=== PATIENT | female | born 1960 | race Caucasian/White ===

== ENCOUNTER 2017-11-12 13:10 | Day surgery (SDC) | payer OTHER ==
[~2017-11-12] VITALS: Ht 160 cm; Wt 136.4 kg
[~2017-11-12 13:10] MED LIST: ASPI-1009 PO; ATOR20TA66 PO; COR3.125T PO; ESZO3TAB PO; EXEN10PE SQ; EXEN2VIA SUBCUT; INSU100V36 SQ; INVOKANA; LANTUS SQ; LISI40TA4 PO; METF500T PO; MULT-1085 PO; NIA500ERT PO; OMEG1CAP54 PO; OMEP20CA4 PO
[2017-11-12] MEDS ORDERED: fentaNYL/PF 50MCG/1 ML 2ML syringe ONE (13:13)
[2017-11-12] MEDS ORDERED: LIDOcaine Viscous 15ml cup ONE (13:13)
[2017-11-12] MEDS ORDERED: MIDAZolam 5mg/5ml vial ONE (13:13)
[2017-11-12] MEDS ORDERED: ESZO3TAB38 PO (13:35)
[2017-11-12] MEDS ORDERED: IBUP-1986 PO (13:36)
[2017-11-12] MEDS ORDERED: INSU100V9 SQ (13:37)
[2017-11-12] MEDS ORDERED: ESCI10TA PO (13:37)
[2017-11-12] MEDS ORDERED: METF500T7 PO (13:39)
[2017-11-12] MEDS ORDERED: METF-436 PO (13:40)
[2017-11-12] MEDS ORDERED: TIZA4CAP PO (13:41)
[2017-11-12] MEDS ORDERED: NIA500ERT PO (13:41)
[2017-11-12 13:43] VITALS: BP 121/64
[2017-11-12 14:30] VITALS: BP 108/59
[2017-11-12 14:40] VITALS: BP 103/59
[2017-11-12 14:50] VITALS: BP 104/53
[2017-11-12 15:00] VITALS: BP 120/57
== END 2017-11-12 15:10 | disposition home or self-care (01) ==
LOC: GI LAB 13:10
PROVIDERS: ATTEND Internal Medicine Gastroenterology
DX: I85.00 Esophageal varices without bleeding (principal); K20.9 Esophagitis, unspecified; K29.50 Unspecified chronic gastritis without bleeding; I10 Essential (primary) hypertension; J44.9 Chronic obstructive pulmonary disease, unspecified; E66.01 Morbid (severe) obesity due to excess calories; Z79.82 Long term (current) use of aspirin; Z79.1 Long term (current) use of non-steroidal anti-inflammatories (NSAID); Z87.891 Personal history of nicotine dependence; Z90.49 Acquired absence of other specified parts of digestive tract; Z72.89 Other problems related to lifestyle; Z98.51 Tubal ligation status; Z79.4 Long term (current) use of insulin; Z79.84 Long term (current) use of oral hypoglycemic drugs; Z68.43 Body mass index [BMI] 50.0-59.9, adult; Z98.890 Other specified postprocedural states; Z79.899 Other long term (current) drug therapy
CPT/HCPCS: 43239; 82948; J2250; J3010; J7030; A4620; G0500

== ENCOUNTER 2019-04-22 18:46 | Inpatient (IN) | payer OTHER ==
[~2019-04-22] VITALS: Ht 160 cm; Wt 136.3 kg
[~2019-04-22 18:46] MED LIST changes: +ESCI10TA PO; -ESZO3TAB PO; +ESZO3TAB66 PO; +IBUP-1986 PO; -INSU100V36 SQ; +INSU100V9 SQ; -LANTUS SQ; +METF-436 PO; -METF500T PO; +METF500T20 PO; -OMEP20CA4 PO; +TIZA4CAP PO
[2019-04-22] MEDS ORDERED: albuterol 2.5 MG/3 ML nebule NEB ONE (19:10)
[2019-04-22] MEDS ORDERED: normal saline 1000ML IV soln IVB ONE (19:10)
[2019-04-22 19:44] LABS: WHITE BLOOD COUNT 6.2 X10'3 (4.5-11.0)
[2019-04-22 19:45] LABS: BASOPHILS % (AUTO) 0.3 % (0-1); EOSINOPHILS % (AUTO) 0 % (0-6); HEMATOCRIT 41.2 % (35.0-45.0); LYMPHOCYTES # (AUTO) 0.2 X10'3 (1.1-4.8); LYMPHOCYTES % (AUTO) 2.6 % (21-51); MEAN CORPUSCULAR HEMOGLOBIN 28.5 PG (27.0-31.0); MEAN CORPUSCULAR HGB CONC 33.9 g/dL (33.0-36.5); MEAN PLATELET VOLUME 9.1 FL (7.4-10.4); MONOCYTES # (AUTO) 0.3 X10'3 (0-0.9); NEUTROPHILS # (AUTO) 5.8 X10'3 (1.8-7.7); NEUTROPHILS % (AUTO) 93.1 % (42-75); RED BLOOD COUNT 4.91 X10'6 (4.20-5.60); RED CELL DISTRIBUTION WIDTH 14.5 % (11.5-14.5)
[2019-04-22] MEDS ORDERED: acetaminophen 325mg tablet PO ONE (19:50)
[2019-04-22 19:55] LABS: PARTIAL THROMBOPLASTIN TIME 27 SECONDS (22-32)
[2019-04-22 19:57] LABS: ALANINE AMINOTRANSFERASE 60 U/L (12-78); ALBUMIN 3.6 G/DL (3.4-5.0); ALBUMIN/GLOBULIN RATIO 0.8 (1.1-1.5); ALKALINE PHOSPHATASE 47 IU/L (46-116); ANION GAP 13 (8-16); ASPARTATE AMINO TRANSFERASE 72 U/L (10-37); BILIRUBIN,TOTAL 0.6 MG/DL (0.1-1.0); BLOOD UREA NITROGEN 17 MG/DL (7-18); BUN/CREATININE RATIO 9.8 (6.6-38.0); CHLORIDE 98 MMOL/L (99-107); CREATININE 1.73 MG/DL (0.40-0.90); GLUCOSE 235 MG/DL (70-104); POTASSIUM 3.7 MMOL/L (3.5-5.1); SODIUM 134 MMOL/L (135-145); TOTAL CARBON DIOXIDE 23.4 MMOL/L (24-32); TOTAL PROTEIN 7.9 G/DL (6.4-8.2); eGFR 30 ML/MIN
[2019-04-22 20:23] LABS: BANDS% (MANUAL) 9 % (0-10); LYMPHOCYTES % (MANUAL) 1 % (21-51); MONOCYTES % (MANUAL) 3 % (2-12); NEUTROPHILS % (MANUAL) 88 % (42-75); PLATELET COUNT 81 X10'3 (140-440); PLATELET ESTIMATE DECREASED; TOTAL CELLS COUNTED 100
[2019-04-22] MEDS ORDERED: azithromycin 250mg tablet PO ONE (20:30)
[2019-04-22] MEDS ORDERED: CefTRIAXone 2gm/D5W 50ml 50 ML IV ONE (20:30)
[2019-04-22 20:46] LABS: COLOR,URINE YELLOW (Yellow); GLUCOSE, URINE >=1000 mg/dl (Neg); KETONES,URINE NEGATIVE (Neg); LEUKOCYTE ESTERASE ,URINE SMALL (Neg); NITRITES, URINE NEGATIVE (Neg); OCCULT BLOOD,URINE MODERATE (Neg); PH,URINE 5.5 (4.8-8.0); PROTEIN,URINE NEGATIVE (Neg); UROBILINOGEN,URINE 0.2 E.U/dL (0.2-1.0)
[2019-04-22 20:47] LABS: CLARITY,URINE Slightly Cloudy (Clear); UA COLLECTION TYPE CLN CATCH MIDSTREAM
[2019-04-22 20:55] LABS: BACTERIA,URINE FEW /HPF (Neg); MUCUS STRANDS NONE SEEN /LPF (Neg); RBC,URINE 0-2 /HPF (0-2); SQUAMOUS EPITHELIAL CELL,UR MANY /LPF (FEW); TRANSITIONAL EPI CELLS,URINE MODERATE /HPF
[2019-04-22] MEDS ORDERED: ALBU8.5H8 IH (20:55)
[2019-04-22] MEDS ORDERED: DOXY100C43 PO (20:55)
[2019-04-22] MEDS ORDERED: vancomycin/NS 1 GM ADD-VANTAGE 250 ML IV ONE (21:05)
[2019-04-22] MEDS ORDERED: CANA300T PO (21:16)
[2019-04-22] MEDS ORDERED: METF500T PO (21:16)
[2019-04-22] MEDS ORDERED: iohexol 300mg/ml 100ml inj. ONE (21:41)
[2019-04-22] MEDS: MESSAGE TO NURSING PO NR (21:45)
[2019-04-22] MEDS ORDERED: magnesium Cl slow-release 64mg tablet PO PRN (22:30)
[2019-04-22] MEDS ORDERED: magnesium 2GM in 50ml NS 50 ML IV PRN (22:30)
[2019-04-22] MEDS ORDERED: mag hydrox/Alum hydrox/simeth 30ml oral suspension PO PRN (22:30)
[2019-04-22] MEDS ORDERED: ondansetron/PF 4mg/2ml inj IV PRN (22:30)
[2019-04-22] MEDS ORDERED: magnesium hydroxide 30ml (MOM) UD suspension PO PRN (22:30)
[2019-04-22] MEDS ORDERED: potassium CL 10mEq/100ml bag 100 ML IV PRN ×2 (22:30)
[2019-04-22] MEDS ORDERED: magnesium 4gm in 100ml NS 100 ML IV PRN (22:30)
[2019-04-22] MEDS ORDERED: potassium Cl 20 mEq SR tablet PO PRN (22:30)
[2019-04-22] MEDS ORDERED: MESSAGE TO PHARMACY PO ONE (22:35)
[2019-04-22] MEDS ORDERED: dextrose ORAL solution 15 GM/59 ML bottle PO PRN ×2 (22:35)
[2019-04-22] MEDS ORDERED: glucagon, human recombinant 1mg kit SUBCUT PRN (22:35)
[2019-04-22] MEDS ORDERED: dextrose 50%-water 50ml dispensing syringe IV PRN ×2 (22:35)
[2019-04-22 23:25] VITALS: BP 108/72
--- NOTE | 2019-04-22 23:25 | NUR ---
pt brought to unit via wheelchair accompanied by family. transferred self to bed, 2x rails up, non skid socks on, BLL, call light in reach. in no apparent distress, will continue to monitor
[2019-04-22] MEDS: normal saline 1000ml 1,000 ML IV SCH (23:47)
[2019-04-23] MEDS: insulin glargine (Lantus) pen - multi-dose SQ SCH ×2 (00:28→21:48)
[2019-04-23] MEDS: clindamycin 600mg/D5W 50ml 50 ML IV SCH ×2 (02:14→07:14)
[2019-04-23 05:13] LABS: BASOPHILS % (AUTO) 0 % (0-1); EOSINOPHILS % (AUTO) 0.1 % (0-6); HEMATOCRIT 36.9 % (35.0-45.0); HEMOGLOBIN 12.3 g/dl (12.0-16.0); LYMPHOCYTES # (AUTO) 0.3 X10'3 (1.1-4.8); LYMPHOCYTES % (AUTO) 4.6 % (21-51); MEAN CORPUSCULAR HEMOGLOBIN 28.2 PG (27.0-31.0); MEAN CORPUSCULAR HGB CONC 33.4 g/dL (33.0-36.5); MEAN CORPUSCULAR VOLUME 84.5 FL (78-98); MEAN PLATELET VOLUME 9.3 FL (7.4-10.4); MONOCYTES # (AUTO) 0.3 X10'3 (0-0.9); MONOCYTES % (AUTO) 5.3 % (2-12); NEUTROPHILS # (AUTO) 5.9 X10'3 (1.8-7.7); PLATELET COUNT 63 X10'3 (140-440); RED BLOOD COUNT 4.36 X10'6 (4.20-5.60); RED CELL DISTRIBUTION WIDTH 14.5 % (11.5-14.5); WHITE BLOOD COUNT 6.5 X10'3 (4.5-11.0)
[2019-04-23 05:26] LABS: ALANINE AMINOTRANSFERASE 58 U/L (12-78); ALBUMIN/GLOBULIN RATIO 0.8 (1.1-1.5); ALKALINE PHOSPHATASE 43 IU/L (46-116); ANION GAP 9 (8-16); ASPARTATE AMINO TRANSFERASE 54 U/L (10-37); BILIRUBIN,TOTAL 0.4 MG/DL (0.1-1.0); BLOOD UREA NITROGEN 21 MG/DL (7-18); BUN/CREATININE RATIO 11.4 (6.6-38.0); CALCIUM 8.2 MG/DL (8.5-10.1); CHLORIDE 102 MMOL/L (99-107); CREATININE 1.85 MG/DL (0.40-0.90); GLUCOSE 200 MG/DL (70-104); MAGNESIUM 1.5 MG/DL (1.5-2.4); POTASSIUM 3.7 MMOL/L (3.5-5.1); SODIUM 136 MMOL/L (135-145); TOTAL CARBON DIOXIDE 25.3 MMOL/L (24-32); TOTAL PROTEIN 6.7 G/DL (6.4-8.2); eGFR 28 ML/MIN
[2019-04-23 05:35] LABS: PLATELET ESTIMATE DECREASED; TOTAL CELLS COUNTED 100
[2019-04-23 05:41] LABS: ROULEAUX 1+
--- NOTE | 2019-04-23 06:23 | NUR ---
report given to GLENYS Sanchez
--- NOTE | 2019-04-23 06:26 | NUR ---
Patient in room [facility]. I have received report from Miko VERONICA and had the opportunity to ask questions and assume patient care.
[2019-04-23] MEDS: ESCITALOPRAM OXALATE 5 MG TABLET PO SCH (07:18)
[2019-04-23] MEDS: aspirin 81mg tablet.DR PO SCH (07:18)
[2019-04-23] MEDS: OMEGA-3/DHA/EPA/FISH OIL 1 EACH CAPSULE.DR PO SCH ×3 (07:18→20:38)
[2019-04-23] MEDS: acetaminophen 325mg tablet PO PRN ×3 (07:18→17:53)
[2019-04-23] MEDS: carvedilol 6.25mg tablet PO SCH ×2 (07:18→20:00)
[2019-04-23] MEDS: atorvastatin 20mg tablet PO SCH (07:19)
[2019-04-23] MEDS: lisinopril 20mg tablet PO SCH (07:19)
[2019-04-23] MEDS: heparin, porcine 5000 units/ml vial SQ SCH ×2 (07:33→20:00)
[2019-04-23 08:00] VITALS: BP_SYST 107; BP_SYST 114; BP_DIAS 66; BP_DIAS 68
[2019-04-23] MEDS: K and/or MAG REPLACEMENT MC SCH ×2 (08:00→19:08)
[2019-04-23] MEDS: CefTRIAXone/D5W-Rocephin 1gm 50 ML IV SCH (08:44)
[2019-04-23] MEDS ORDERED: potassium CL 10mEq/100ml bag 100 ML IV PRN (09:25)
[2019-04-23] MEDS ORDERED: potassium Cl 20 mEq SR tablet PO PRN ×2 (09:25)
[2019-04-23] MEDS ORDERED: magnesium Cl slow-release 64mg tablet PO PRN (09:25)
[2019-04-23] MEDS ORDERED: albuterol 2.5 MG/3 ML nebule NEB PRN (09:35)
[2019-04-23] MEDS: MESSAGE TO NURSING PO NR (10:00)
[2019-04-23] MEDS: normal saline 1000ml 1,000 ML IV SCH ×2 (10:11→18:27)
[2019-04-23 13:21] VITALS: BP 107/68
[2019-04-23] MEDS: HYDROcodone/acetaminophen 5mg/325mg tablet PO PRN (14:24)
[2019-04-23] MEDS ORDERED: ibuprofen tablet 400 MG TABLET PO PRN (15:40)
[2019-04-23] MEDS: ibuprofen 200mg tablet PO PRN (16:09)
[2019-04-23 18:00] VITALS: BP 98/39
[2019-04-23] MEDS: insulin Lispro (HumaLOG) vial - multi-dose SQ SCH (18:35)
--- NOTE | 2019-04-23 18:41 | NUR ---
Patient temp between 102.9 to 103.9. MD notified as needed. New order for Ibuprofen. after pt was medicated the second time temp was down to 99.5 at 1745. Problems reprioritized. Patient report given, questions answered & plan of care reviewed with Miko VERONICA.
[2019-04-23] MEDS: lactobacillus rhamnosus 10,000 MMU CELLS/CAPSULE PO SCH (20:38)
[2019-04-24] VITALS: BP 85/41
[2019-04-24 04:23] VITALS: BP 112/62
[2019-04-24] MEDS: normal saline 1000ml 1,000 ML IV SCH ×2 (04:27→17:48)
[2019-04-24 06:14] LABS: BASOPHILS % (AUTO) 0.1 % (0-1); EOSINOPHILS % (AUTO) 1.2 % (0-6); HEMATOCRIT 34.4 % (35.0-45.0); HEMOGLOBIN 11.5 g/dl (12.0-16.0); LYMPHOCYTES # (AUTO) 0.3 X10'3 (1.1-4.8); LYMPHOCYTES % (AUTO) 6.9 % (21-51); MEAN CORPUSCULAR HEMOGLOBIN 28.3 PG (27.0-31.0); MEAN CORPUSCULAR HGB CONC 33.6 g/dL (33.0-36.5); MEAN CORPUSCULAR VOLUME 84.3 FL (78-98); MONOCYTES # (AUTO) 0.2 X10'3 (0-0.9); NEUTROPHILS # (AUTO) 3.6 X10'3 (1.8-7.7); NEUTROPHILS % (AUTO) 85.8 % (42-75); PLATELET COUNT 60 X10'3 (140-440); RED BLOOD COUNT 4.08 X10'6 (4.20-5.60); RED CELL DISTRIBUTION WIDTH 14.8 % (11.5-14.5); WHITE BLOOD COUNT 4.2 X10'3 (4.5-11.0)
[2019-04-24 06:25] LABS: ALANINE AMINOTRANSFERASE 48 U/L (12-78); ALBUMIN 2.5 G/DL (3.4-5.0); ALBUMIN/GLOBULIN RATIO 0.6 (1.1-1.5); ALKALINE PHOSPHATASE 41 IU/L (46-116); ANION GAP 12 (8-16); ASPARTATE AMINO TRANSFERASE 40 U/L (10-37); BILIRUBIN,TOTAL 0.4 MG/DL (0.1-1.0); BLOOD UREA NITROGEN 30 MG/DL (7-18); BUN/CREATININE RATIO 16.1 (6.6-38.0); CALCIUM 7.7 MG/DL (8.5-10.1); CHLORIDE 103 MMOL/L (99-107); CREATININE 1.86 MG/DL (0.40-0.90); GLUCOSE 126 MG/DL (70-104); MAGNESIUM 1.7 MG/DL (1.5-2.4); POTASSIUM 3.4 MMOL/L (3.5-5.1); SODIUM 136 MMOL/L (135-145); TOTAL PROTEIN 6.4 G/DL (6.4-8.2); eGFR 28 ML/MIN
--- NOTE | 2019-04-24 06:46 | NUR ---
Patient in room [facility]. I have received report from Miko VERONICA and had the opportunity to ask questions and assume patient care.
[2019-04-24] MEDS: CefTRIAXone/D5W-Rocephin 1gm 50 ML IV SCH (07:12)
[2019-04-24] MEDS: ESCITALOPRAM OXALATE 5 MG TABLET PO SCH (07:20)
[2019-04-24] MEDS: potassium Cl 20 mEq SR tablet PO PRN ×3 (07:21→17:45)
[2019-04-24] MEDS: OMEGA-3/DHA/EPA/FISH OIL 1 EACH CAPSULE.DR PO SCH ×3 (07:21→20:29)
[2019-04-24] MEDS: atorvastatin 20mg tablet PO SCH (07:21)
[2019-04-24] MEDS: lactobacillus rhamnosus 10,000 MMU CELLS/CAPSULE PO SCH ×2 (07:21→20:29)
[2019-04-24] MEDS: aspirin 81mg tablet.DR PO SCH (07:22)
[2019-04-24] MEDS: carvedilol 6.25mg tablet PO SCH ×2 (07:25→20:29)
[2019-04-24] MEDS: lisinopril 20mg tablet PO SCH (07:25)
[2019-04-24] MEDS: K and/or MAG REPLACEMENT MC SCH ×2 (07:27→19:44)
[2019-04-24] MEDS: heparin, porcine 5000 units/ml vial SQ SCH ×2 (07:28→20:00)
[2019-04-24] MEDS: insulin Lispro (HumaLOG) vial - multi-dose SQ SCH ×3 (08:34→18:43)
[2019-04-24 08:46] VITALS: BP 108/54
[2019-04-24] MEDS: MESSAGE TO NURSING PO NR (10:00)
[2019-04-24 12:00] VITALS: BP 135/75
[2019-04-24] MEDS: acetaminophen 325mg tablet PO PRN (13:47)
[2019-04-24] MEDS ORDERED: LORazepam 0.5 MG tablet PO PRN (15:10)
--- NOTE | 2019-04-24 15:55 | NUR ---
DM Consult: A1C 7.0. Pt seen by PATIENCE for written/verbal DM ed w/ RD contact information provided. Pt declined verbal ed; sees RD's at [facility] for DM eds. Addendum: 04/24/19 at [address] Amended: Links added.
[2019-04-24 18:00] VITALS: BP 142/71
--- NOTE | 2019-04-24 18:31 | NUR ---
Patient in room [facility]. I have received report from BRITNEY VERONICA and had the opportunity to ask questions and assume patient care.
--- NOTE | 2019-04-24 18:50 | NUR ---
Patient Temp 101.2 antipyretic medication given temp down to 99.1. Problems reprioritized. Patient report given, questions answered & plan of care reviewed with Prudence RN.
[2019-04-24] MEDS: insulin glargine (Lantus) pen - multi-dose SQ SCH (21:17)
[2019-04-24] MEDS: ibuprofen 200mg tablet PO PRN (21:20)
[2019-04-24] MEDS: zolpidem 5mg tablet PO PRN (22:28)
[2019-04-25 00:06] VITALS: BP 96/63
[2019-04-25] MEDS: normal saline 1000ml 1,000 ML IV SCH ×3 (00:27→17:01)
[2019-04-25 05:14] LABS: BASOPHILS % (AUTO) 0.1 % (0-1); EOSINOPHILS # (AUTO) 0.1 X10'3 (0-0.9); EOSINOPHILS % (AUTO) 2.6 % (0-6); HEMATOCRIT 32.2 % (35.0-45.0); HEMOGLOBIN 10.6 g/dl (12.0-16.0); LYMPHOCYTES # (AUTO) 0.4 X10'3 (1.1-4.8); LYMPHOCYTES % (AUTO) 11.7 % (21-51); MEAN CORPUSCULAR HEMOGLOBIN 28.2 PG (27.0-31.0); MEAN CORPUSCULAR VOLUME 85.5 FL (78-98); MEAN PLATELET VOLUME 9.3 FL (7.4-10.4); MONOCYTES # (AUTO) 0.3 X10'3 (0-0.9); MONOCYTES % (AUTO) 7.4 % (2-12); NEUTROPHILS # (AUTO) 2.8 X10'3 (1.8-7.7); NEUTROPHILS % (AUTO) 78.2 % (42-75); PLATELET COUNT 70 X10'3 (140-440); RED BLOOD COUNT 3.77 X10'6 (4.20-5.60); RED CELL DISTRIBUTION WIDTH 14.3 % (11.5-14.5); WHITE BLOOD COUNT 3.6 X10'3 (4.5-11.0)
[2019-04-25 05:36] LABS: ALANINE AMINOTRANSFERASE 39 U/L (12-78); ALBUMIN 2.2 G/DL (3.4-5.0); ALBUMIN/GLOBULIN RATIO 0.6 (1.1-1.5); ALKALINE PHOSPHATASE 41 IU/L (46-116); ANION GAP 7 (8-16); ASPARTATE AMINO TRANSFERASE 28 U/L (10-37); BILIRUBIN,TOTAL 0.3 MG/DL (0.1-1.0); BLOOD UREA NITROGEN 20 MG/DL (7-18); BUN/CREATININE RATIO 15.4 (6.6-38.0); CALCIUM 7.7 MG/DL (8.5-10.1); CHLORIDE 110 MMOL/L (99-107); GLUCOSE 88 MG/DL (70-104); MAGNESIUM 1.9 MG/DL (1.5-2.4); POTASSIUM 3.4 MMOL/L (3.5-5.1); SODIUM 139 MMOL/L (135-145); TOTAL PROTEIN 5.7 G/DL (6.4-8.2); eGFR 42 ML/MIN
--- NOTE | 2019-04-25 06:25 | NUR ---
Problems reprioritized. Patient report given, questions answered & plan of care reviewed with JOSE FRANCISCO VERONICA.
--- NOTE | 2019-04-25 06:30 | NUR ---
Patient in room [facility]. I have received report from Aydee VERONICA and had the opportunity to ask questions and assume patient care.
[2019-04-25 07:06] VITALS: BP 115/77
[2019-04-25] MEDS: heparin, porcine 5000 units/ml vial SQ SCH ×2 (07:23→20:00)
[2019-04-25] MEDS: K and/or MAG REPLACEMENT MC SCH ×2 (08:00→19:50)
[2019-04-25] MEDS: OMEGA-3/DHA/EPA/FISH OIL 1 EACH CAPSULE.DR PO SCH ×3 (09:15→21:54)
[2019-04-25] MEDS: aspirin 81mg tablet.DR PO SCH (09:15)
[2019-04-25] MEDS: lisinopril 20mg tablet PO SCH (09:16)
[2019-04-25] MEDS: atorvastatin 20mg tablet PO SCH (09:17)
[2019-04-25] MEDS: lactobacillus rhamnosus 10,000 MMU CELLS/CAPSULE PO SCH (09:17)
[2019-04-25] MEDS: CefTRIAXone/D5W-Rocephin 1gm 50 ML IV SCH (09:17)
[2019-04-25] MEDS: carvedilol 6.25mg tablet PO SCH ×2 (09:17→19:49)
[2019-04-25] MEDS: ESCITALOPRAM OXALATE 5 MG TABLET PO SCH (09:17)
[2019-04-25] MEDS: potassium Cl 20 mEq SR tablet PO PRN ×3 (09:24→19:48)
[2019-04-25] MEDS: insulin Lispro (HumaLOG) vial - multi-dose SQ SCH ×2 (10:01→13:16)
[2019-04-25 11:30] VITALS: BP 117/63
--- NOTE | 2019-04-25 11:31 | NUR ---
Informed Dr. Escobar of plt 70 and that heparin was held. No new orders at this time.
[2019-04-25] MEDS: HYDROcodone/acetaminophen 5mg/325mg tablet PO PRN (11:33)
[2019-04-25 18:00] VITALS: BP 125/64
--- NOTE | 2019-04-25 18:32 | NUR ---
Problems reprioritized. Patient report given, questions answered & plan of care reviewed with Dylon VERONICA.
--- NOTE | 2019-04-25 18:43 | NUR ---
Problems reprioritized. Patient report given, questions answered & plan of care reviewed with Prudence RN. Disregard previous note, wrong patient.
--- NOTE | 2019-04-25 19:00 | NUR ---
Patient in room [facility]. I have received report from JOSE FRANCISCO VERONICA and had the opportunity to ask questions and assume patient care.
[2019-04-25] MEDS: zolpidem 5mg tablet PO PRN (21:54)
[2019-04-26 00:15] VITALS: BP 118/50
[2019-04-26] MEDS: normal saline 1000ml 1,000 ML IV SCH ×3 (03:34→19:09)
--- NOTE | 2019-04-26 06:10 | NUR ---
Patient in room [facility]. I have received report from Aydee VERONICA and had the opportunity to ask questions and assume patient care.
--- NOTE | 2019-04-26 06:21 | NUR ---
Problems reprioritized. Patient report given, questions answered & plan of care reviewed with JOSE FRANCISCO VERONICA.
[2019-04-26 06:50] VITALS: BP 124/65
[2019-04-26 07:00] LABS: BASOPHILS % (AUTO) 0.3 % (0-1); EOSINOPHILS # (AUTO) 0.1 X10'3 (0-0.9); EOSINOPHILS % (AUTO) 1.6 % (0-6); HEMOGLOBIN 10.5 g/dl (12.0-16.0); LYMPHOCYTES # (AUTO) 0.5 X10'3 (1.1-4.8); LYMPHOCYTES % (AUTO) 11.3 % (21-51); MEAN CORPUSCULAR HEMOGLOBIN 28.1 PG (27.0-31.0); MEAN CORPUSCULAR HGB CONC 33.8 g/dL (33.0-36.5); MEAN CORPUSCULAR VOLUME 83.2 FL (78-98); MEAN PLATELET VOLUME 8.9 FL (7.4-10.4); MONOCYTES # (AUTO) 0.4 X10'3 (0-0.9); NEUTROPHILS # (AUTO) 3.3 X10'3 (1.8-7.7); NEUTROPHILS % (AUTO) 77.8 % (42-75); PLATELET COUNT 91 X10'3 (140-440); RED BLOOD COUNT 3.73 X10'6 (4.20-5.60); RED CELL DISTRIBUTION WIDTH 14.3 % (11.5-14.5); WHITE BLOOD COUNT 4.3 X10'3 (4.5-11.0)
[2019-04-26 07:12] LABS: ALANINE AMINOTRANSFERASE 40 U/L (12-78); ALBUMIN 2.2 G/DL (3.4-5.0); ALBUMIN/GLOBULIN RATIO 0.6 (1.1-1.5); ALKALINE PHOSPHATASE 68 IU/L (46-116); ANION GAP 8 (8-16); ASPARTATE AMINO TRANSFERASE 30 U/L (10-37); BILIRUBIN,TOTAL 0.4 MG/DL (0.1-1.0); BLOOD UREA NITROGEN 14 MG/DL (7-18); BUN/CREATININE RATIO 12.5 (6.6-38.0); CALCIUM 7.8 MG/DL (8.5-10.1); CHLORIDE 109 MMOL/L (99-107); CREATININE 1.12 MG/DL (0.40-0.90); GLUCOSE 81 MG/DL (70-104); MAGNESIUM 1.7 MG/DL (1.5-2.4); POTASSIUM 3.9 MMOL/L (3.5-5.1); SODIUM 138 MMOL/L (135-145); TOTAL CARBON DIOXIDE 21.5 MMOL/L (24-32); TOTAL PROTEIN 5.9 G/DL (6.4-8.2); eGFR 50 ML/MIN
[2019-04-26] MEDS: heparin, porcine 5000 units/ml vial SQ SCH (07:45)
[2019-04-26] MEDS: K and/or MAG REPLACEMENT MC SCH ×2 (08:00→20:00)
[2019-04-26] MEDS: atorvastatin 20mg tablet PO SCH (08:06)
[2019-04-26] MEDS: OMEGA-3/DHA/EPA/FISH OIL 1 EACH CAPSULE.DR PO SCH ×3 (08:06→20:30)
[2019-04-26] MEDS: carvedilol 6.25mg tablet PO SCH ×2 (08:06→20:30)
[2019-04-26] MEDS: aspirin 81mg tablet.DR PO SCH (08:06)
[2019-04-26] MEDS: ESCITALOPRAM OXALATE 5 MG TABLET PO SCH (08:07)
[2019-04-26] MEDS: lisinopril 20mg tablet PO SCH (08:07)
[2019-04-26] MEDS: CefTRIAXone/D5W-Rocephin 1gm 50 ML IV SCH (08:07)
[2019-04-26] MEDS: HYDROcodone/acetaminophen 5mg/325mg tablet PO PRN ×2 (08:14→17:32)
[2019-04-26] MEDS ORDERED: VANCOMYCIN LEVEL IV ONE (09:30)
[2019-04-26 11:11] VITALS: BP 101/54
--- NOTE | 2019-04-26 18:40 | NUR ---
Problems reprioritized. Patient report given, questions answered & plan of care reviewed with Prudence RN.
--- NOTE | 2019-04-26 19:58 | NUR ---
Patient in room [facility]. I have received report from Mayuri VERONICA and had the opportunity to ask questions and assume patient care.
[2019-04-26] MEDS: insulin glargine (Lantus) pen - multi-dose SQ SCH (21:00)
[2019-04-26] MEDS: zolpidem 5mg tablet PO PRN (22:07)
[2019-04-27] VITALS: BP 117/68
[2019-04-27] MEDS: normal saline 1000ml 1,000 ML IV SCH ×2 (04:36→19:14)
[2019-04-27 05:22] LABS: BASOPHILS % (AUTO) 0.2 % (0-1); EOSINOPHILS # (AUTO) 0.1 X10'3 (0-0.9); EOSINOPHILS % (AUTO) 2.6 % (0-6); HEMATOCRIT 31.2 % (35.0-45.0); HEMOGLOBIN 10.4 g/dl (12.0-16.0); LYMPHOCYTES # (AUTO) 0.5 X10'3 (1.1-4.8); LYMPHOCYTES % (AUTO) 14.9 % (21-51); MEAN CORPUSCULAR HEMOGLOBIN 28.2 PG (27.0-31.0); MEAN CORPUSCULAR HGB CONC 33.4 g/dL (33.0-36.5); MEAN CORPUSCULAR VOLUME 84.5 FL (78-98); MEAN PLATELET VOLUME 8.6 FL (7.4-10.4); MONOCYTES # (AUTO) 0.4 X10'3 (0-0.9); MONOCYTES % (AUTO) 10.9 % (2-12); NEUTROPHILS # (AUTO) 2.4 X10'3 (1.8-7.7); NEUTROPHILS % (AUTO) 71.4 % (42-75); PLATELET COUNT 95 X10'3 (140-440); RED BLOOD COUNT 3.69 X10'6 (4.20-5.60); RED CELL DISTRIBUTION WIDTH 14.6 % (11.5-14.5); WHITE BLOOD COUNT 3.4 X10'3 (4.5-11.0)
[2019-04-27 05:48] LABS: ALANINE AMINOTRANSFERASE 51 U/L (12-78); ALBUMIN 2.1 G/DL (3.4-5.0); ALBUMIN/GLOBULIN RATIO 0.6 (1.1-1.5); ALKALINE PHOSPHATASE 84 IU/L (46-116); ANION GAP 6 (8-16); ASPARTATE AMINO TRANSFERASE 34 U/L (10-37); BILIRUBIN,TOTAL 0.3 MG/DL (0.1-1.0); BLOOD UREA NITROGEN 12 MG/DL (7-18); BUN/CREATININE RATIO 12.4 (6.6-38.0); CHLORIDE 108 MMOL/L (99-107); CREATININE 0.97 MG/DL (0.40-0.90); GLUCOSE 117 MG/DL (70-104); MAGNESIUM 1.7 MG/DL (1.5-2.4); POTASSIUM 4.1 MMOL/L (3.5-5.1); SODIUM 137 MMOL/L (135-145); TOTAL CARBON DIOXIDE 22.9 MMOL/L (24-32); TOTAL PROTEIN 5.8 G/DL (6.4-8.2); eGFR 59 ML/MIN
--- NOTE | 2019-04-27 06:16 | NUR ---
Patient in room [facility]. I have received report from GLENYS BELL and had the opportunity to ask questions and assume patient care.
--- NOTE | 2019-04-27 06:20 | NUR ---
Problems reprioritized. Patient report given, questions answered & plan of care reviewed with WAYNE VERONICA.
[2019-04-27] MEDS: CefTRIAXone 2gm/D5W 50ml 50 ML IV SCH (07:26)
[2019-04-27] MEDS: lisinopril 20mg tablet PO SCH (07:26)
[2019-04-27] MEDS: ESCITALOPRAM OXALATE 5 MG TABLET PO SCH (07:26)
[2019-04-27] MEDS: OMEGA-3/DHA/EPA/FISH OIL 1 EACH CAPSULE.DR PO SCH ×3 (07:27→20:25)
[2019-04-27] MEDS: atorvastatin 20mg tablet PO SCH (07:27)
[2019-04-27] MEDS: aspirin 81mg tablet.DR PO SCH (07:27)
[2019-04-27] MEDS: carvedilol 6.25mg tablet PO SCH ×2 (07:27→20:25)
[2019-04-27 08:00] VITALS: BP 126/80
[2019-04-27] MEDS: K and/or MAG REPLACEMENT MC SCH ×2 (08:00→19:11)
--- NOTE | 2019-04-27 09:13 | NUR ---
Problems reprioritized. Patient report given, questions answered & plan of care reviewed with GLENYS FELTON.
--- NOTE | 2019-04-27 09:28 | NUR ---
Patient in room [facility]. I have received report from Myrna VERONICA and had the opportunity to ask questions and assume patient care.
[2019-04-27 11:11] VITALS: BP 106/61
--- NOTE | 2019-04-27 11:46 | NUR ---
Initial: Pt admit with cellulitis of left buttock area with sepsis. Per MD note sepsis resolved. Pt on CHO controlled diet, previously averaging 50-75% PO intake however now averaging 75-100% PO intake meeting nutrient needs with adequate protein to support skin integrity. [facility] 04/26. Will continue to follow. Recommendations: 1) Continue CHO controlled diet 2) Monitor need for additional protein 3) Bowel care PRN 4) Wt per rx Addendum: 04/27/19 at [address] Amended: Links added.
[2019-04-27] MEDS ORDERED: iohexol 300mg/ml 100ml inj. ONE (14:10)
[2019-04-27] MEDS: HYDROcodone/acetaminophen 5mg/325mg tablet PO PRN (17:12)
--- NOTE | 2019-04-27 18:25 | NUR ---
Problems reprioritized. Patient report given, questions answered & plan of care reviewed with Renetta VERONICA.
--- NOTE | 2019-04-27 18:25 | NUR ---
Patient in room [facility]. I have received report from GLENYS Messina and had the opportunity to ask questions and assume patient care. Pt sitting up in bed, family at bedside. No complaints Addendum: 04/27/19 at 1907 by Tracy Russell RN Amended: Links added.
--- NOTE | 2019-04-27 18:27 | NUR ---
Problems reprioritized. Patient report given, questions answered & plan of care reviewed with Renetta VERONICA.
[2019-04-27 20:16] VITALS: BP 125/52
--- NOTE | 2019-04-27 20:39 | NUR ---
pt states yuliya was changed today. Addendum: 04/27/19 at 2038 by Tracy Russell RN Amended: Links added.
[2019-04-27] MEDS: insulin glargine (Lantus) pen - multi-dose SQ SCH (21:00)
[2019-04-27] MEDS: zolpidem 5mg tablet PO PRN (21:53)
--- NOTE | 2019-04-27 21:57 | NUR ---
lc given per request. no complaints. Addendum: 04/27/19 at 2157 by Tracy Russell RN Amended: Links added.
[2019-04-27 23:56] VITALS: BP 137/75
[2019-04-28] MEDS: normal saline 1000ml 1,000 ML IV SCH (05:04)
--- NOTE | 2019-04-28 06:32 | NUR ---
Problems reprioritized. Patient report given, questions answered & plan of care reviewed with GLENYS Mckeon. Addendum: 04/28/19 at 0632 by Tracy Russell RN Amended: Links added.
--- NOTE | 2019-04-28 06:34 | NUR ---
Patient in room [facility]. I have received report from Renetta VERONICA and had the opportunity to ask questions and assume patient care.
[2019-04-28 07:00] VITALS: BP 124/65
[2019-04-28] MEDS: K and/or MAG REPLACEMENT MC SCH (08:00)
[2019-04-28] MEDS: CefTRIAXone 2gm/D5W 50ml 50 ML IV SCH (08:17)
[2019-04-28] MEDS: lisinopril 20mg tablet PO SCH (08:18)
[2019-04-28] MEDS: OMEGA-3/DHA/EPA/FISH OIL 1 EACH CAPSULE.DR PO SCH ×2 (08:18→13:26)
[2019-04-28] MEDS: atorvastatin 20mg tablet PO SCH (08:18)
[2019-04-28] MEDS: aspirin 81mg tablet.DR PO SCH (08:19)
[2019-04-28] MEDS: carvedilol 6.25mg tablet PO SCH (08:19)
[2019-04-28] MEDS: ESCITALOPRAM OXALATE 5 MG TABLET PO SCH (08:19)
[2019-04-28] MEDS ORDERED: potassium CL 10mEq/100ml bag 100 ML IV PRN (08:25)
[2019-04-28] MEDS ORDERED: K and/or MAG REPLACEMENT MC SCH (08:25)
[2019-04-28] MEDS ORDERED: potassium Cl 20 mEq SR tablet PO PRN ×2 (08:25)
[2019-04-28] MEDS ORDERED: magnesium 2GM in 50ml NS 50 ML IV PRN (08:25)
[2019-04-28] MEDS ORDERED: magnesium 4gm in 100ml NS 100 ML IV PRN (08:25)
[2019-04-28] MEDS ORDERED: magnesium Cl slow-release 64mg tablet PO PRN (08:25)
[2019-04-28] MEDS ORDERED: CLIN-5 PO (10:06)
[2019-04-28] MEDS ORDERED: LEVO750T21 PO (10:06)
[2019-04-28 11:00] VITALS: BP_SYST 130; BP_SYST 164; BP_DIAS 64; BP_DIAS 74
[2019-04-28] MEDS ORDERED: HYDR-4383 PO (11:24)
[2019-04-28] MEDS: HYDROcodone/acetaminophen 5mg/325mg tablet PO PRN (13:33)
--- NOTE | 2019-04-28 13:35 | NUR ---
Pt DC to home. Pt A & O, in no apparent distress. Pt verbalized understanding of all DC orders and directions. Pt able to teach back about S&S of infection getting worse. Pt's belongings were packed and carried out by daughter. Pt given prescription for antibiotics and pain meds. Pt stated taking them to [facility] to fill. Pt wheeled to the front by staff member in axillary where daughter is driving her home.
== END 2019-04-28 13:52 | disposition home or self-care (01) | DRG 871 ==
LOC: ER 18:46 → ED HOLD 22:30 → SUR 3N 23:25
PROVIDERS: ADMIT Internal Medicine; ATTEND Internal Medicine
PROC: BW2G1ZZ Computerized Tomography (CT Scan) of Pelvic Region using Low Osmolar Contrast (ICD-10-PCS; principal; 2019-04-22)
DX: A41.9 Sepsis, unspecified organism (principal); E43 Unspecified severe protein-calorie malnutrition; L03.115 Cellulitis of right lower limb; L03.317 Cellulitis of buttock; N17.9 Acute kidney failure, unspecified; N39.0 Urinary tract infection, site not specified; Z68.43 Body mass index [BMI] 50.0-59.9, adult; D69.59 Other secondary thrombocytopenia; D64.9 Anemia, unspecified; E11.22 Type 2 diabetes mellitus with diabetic chronic kidney disease; E66.01 Morbid (severe) obesity due to excess calories; I12.9 Hypertensive chronic kidney disease with stage 1 through stage 4 chronic kidney disease, or unspecified chronic kidney disease; J40 Bronchitis, not specified as acute or chronic; K43.9 Ventral hernia without obstruction or gangrene; B19.20 Unspecified viral hepatitis C without hepatic coma; K72.90 Hepatic failure, unspecified without coma; K74.60 Unspecified cirrhosis of liver; G47.33 Obstructive sleep apnea (adult) (pediatric); N18.3 Chronic kidney disease, stage 3 (moderate); Z83.3 Family history of diabetes mellitus; Z87.891 Personal history of nicotine dependence
CPT/HCPCS: 36415; 71045; 71250; 72193; 74177; 76881; 80053; 80202; 81001; 82948; 83036; 83605; 83735; 84145; 84484; 85025; 85610; 85730; 87040; 87081; 87502; 87503; 93005; 94760; 96365; 96368; 99285; G0378; J0696; J1644; J1815; J2405; J3370; J3490; J7030; Q9967

== ENCOUNTER 2022-02-15 07:25 | Day surgery (SDC) | payer BC, OTHER ==
[~2022-02-15] VITALS: Ht 160 cm; Wt 134.0 kg
[~2022-02-15 07:25] MED LIST changes: +ALBU8.5H17 IH; +CANA300T PO; +CLIN-91 PO; +HYDR-4383 PO; -IBUP-1986 PO; -INVOKANA; +LISI40TA13 PO; -LISI40TA4 PO; -METF-436 PO; +METF-900 PO; +METF500T PO; -METF500T20 PO; -TIZA4CAP PO
[2022-02-15 07:40] VITALS: BP 146/83
[2022-02-15] MEDS ORDERED: MIDAZolam 1 MG/ML 5ML VIAL ONE (07:51)
[2022-02-15] MEDS ORDERED: fentaNYL/PF 50MCG/1 ML 2ML syringe ONE (07:52)
[2022-02-15] MEDS ORDERED: JARDIANCE PO (07:53)
[2022-02-15] MEDS ORDERED: BUPR-352 PO (07:54)
[2022-02-15] MEDS ORDERED: LANTUS SQ (07:55)
[2022-02-15] MEDS ORDERED: METF-900 PO (07:56)
[2022-02-15] MEDS ORDERED: OMEG1CAP46 PO (07:57)
[2022-02-15] MEDS ORDERED: TRAZ-251 PO (07:58)
[2022-02-15] MEDS ORDERED: PANT-47 PO (07:58)
[2022-02-15] MEDS ORDERED: DULA3PEN SQ (08:00)
[2022-02-15] MEDS ORDERED: ZOLP10TA PO (08:01)
[2022-02-15 09:25] VITALS: BP 124/72
[2022-02-15 09:35] VITALS: BP 116/74
[2022-02-15 09:45] VITALS: BP 122/67
[2022-02-15 09:55] VITALS: BP 134/83
== END 2022-02-15 10:00 | disposition home or self-care (01) ==
LOC: GI LAB 07:25
PROVIDERS: ATTEND Internal Medicine Gastroenterology
DX: Z12.11 Encounter for screening for malignant neoplasm of colon (principal); D17.5 Benign lipomatous neoplasm of intra-abdominal organs; K63.89 Other specified diseases of intestine
CPT/HCPCS: 45380; 99152; J2250; J3010; J7030; Z7512; 99153; A4620